=== PATIENT | female | born 1945 | race Caucasian/White ===

== ENCOUNTER 2024-05-18 17:12 | Emergency (ER) | payer MEDICAID, MEDICARE ==
[~2024-05-18] VITALS: Ht 170.2 cm; Wt 74.0 kg
[2024-05-18 18:58] VITALS: BP 250/71; PULSE 64; RESP 16; TEMP 98; O2SAT 99
== END 2024-05-18 19:01 | disposition home or self-care (01) ==
LOC: ER 17:13
DX: H92.02 Otalgia, left ear (principal)
CPT/HCPCS: 99282